=== PATIENT | male | born 1950 | race Caucasian/White ===

== ENCOUNTER 2021-11-27 21:37 | Emergency (ER) | payer MEDICARE, BC ==
[2021-11-27] MEDS ORDERED: Lidocaine 1% 5 ML VIAL INJECT ONE (22:16)
[2021-11-27] MEDS ORDERED: Diphtheria,Pertussis(Acell),Tetanus Vaccine 0.5 ML Syringe IM ONE (22:16)
[2021-11-27] MEDS ORDERED: Bacitracin Oint 1 GM U/D Packet TOP ONE (22:16)
== END 2021-11-27 22:59 | disposition home or self-care (01) ==
LOC: JP.ED 21:37
DX: S81.031A Puncture wound without foreign body, right knee, initial encounter (principal); I10 Essential (primary) hypertension; Z23 Encounter for immunization; W45.8XXA Other foreign body or object entering through skin, initial encounter
CPT/HCPCS: 90471; 90715; 99283-25